=== PATIENT | female | born 1980 | race Caucasian/White ===

== ENCOUNTER 2023-06-05 18:27 | Outpatient (REF) | payer OTHER, SELFPAY ==
[2023-06-12 21:14] LABS: HPV mRNA E6/E7 rflx Not Detected (Not Detected)
== END 2023-06-05 18:28 | disposition home or self-care (01) ==
LOC: HO.HHCLNP 18:27
PROVIDERS: Visit Provider Family Medicine
DX: Z12.4 Encounter for screening for malignant neoplasm of cervix (principal); Z11.51 Encounter for screening for human papillomavirus (HPV)
CPT/HCPCS: 87624; 88142

== ENCOUNTER 2023-08-15 14:53 | Outpatient (REF) | payer OTHER, SELFPAY ==
[2023-08-15 18:11] LABS: Influenza A PCR NEGATIVE (Negative); Influenza B PCR NEGATIVE (Negative); Resp Syncy Virus RNA Qual PCR NEGATIVE (Negative); SARS COV2 PCR INHOUSE NEGATIVE (Negative)
== END 2023-08-15 14:54 | disposition home or self-care (01) ==
LOC: HO.CHCLNP 14:53
PROVIDERS: Visit Provider Family Medicine
DX: Z11.52 Encounter for screening for COVID-19 (principal); Z20.822 Contact with and (suspected) exposure to COVID-19; R09.81 Nasal congestion
CPT/HCPCS: 0241U

== ENCOUNTER 2023-10-19 10:38 | Outpatient (REF) | payer SELFPAY ==
[2023-10-19 15:23] LABS: TSH reflex Free T4 1.79 uIU/mL (0.32-4.0)
== END 2023-10-19 10:39 | disposition home or self-care (01) ==
LOC: HO.CHCLDS 10:38
PROVIDERS: Visit Provider Family Medicine
DX: E07.9 Disorder of thyroid, unspecified (principal)
CPT/HCPCS: 36415; 84443

== ENCOUNTER 2024-06-11 10:41 | Outpatient (REF) | payer OTHER, SELFPAY ==
[2024-06-11 14:37] LABS: MANUAL DIFF FLAG NO
[2024-06-11 14:40] LABS: Basophils Percent Auto 0.7 % (0-2); Eosinophils Absolute Auto 0.2 X10*3/uL (0.0-0.4); Eosinophils Percent Auto 3.9 % (0-4); Hematocrit 36.4 % (37.0-47.0); Imm Gran Abs Auto 0.01 X10*3/uL (0.00-0.03); Imm Gran Pct Auto 0.2 % (0.0-0.4); Lymphocytes Absolute Auto 1.2 X10*3/uL (1.2-4.9); Lymphocytes Percent Auto 29.1 % (20-40); Mean Corpuscular Hemoglobin 29.6 pg (27.0-33.0); Mean Corpuscular Volume 89.9 fL (80.0-98.0); Mean Platelet Volume 10.7 fL (9.4-12.3); Monocytes Absolute Auto 0.3 X10*3/uL (0.1-1.2); Neutrophils Absolute Auto 2.4 x10*3/uL (2.0-8.3); Neutrophils Percent Auto 58.1 % (45-73); Platelet Count 231 X10*3/uL (160-400); Red Blood Count 4.05 X10*6/uL (4.20-5.50); Red Cell Distribution Width 12.4 % (11.0-16.0); White Blood Count 4.1 X10*3/uL (4.8-10.8)
[2024-06-11 15:15] LABS: Alanine Aminotransferase 10 U/L (0-31); Albumin Level 4.2 g/dL (3.5-5.0); Alkaline Phosphatase 33 U/L (39-117); Anion Gap 9 (12-20); Aspartate Amino Transferase 15 U/L (5-31); Bilirubin Total 0.9 mg/dL (0.0-1.0); Blood Urea Nitrogen 11 mg/dL (9-16); Calcium 9.2 mg/dL (8.4-10.2); Carbon Dioxide 27 mmol/L (22-29); Chloride 106 mmol/L (96-108); Cholesterol 145 mg/dL (<200); Estimated Glomerular Filt Rate > 60; Glucose Random 79 mg/dL (60-115); HDL Cholesterol 53 mg/dL (>40); LDL Cholesterol Calculated 83 mg/dL (<100); Potassium 3.9 mmol/L (3.3-5.1); Sodium 138 mmol/L (135-145); TSH reflex Free T4 1.48 uIU/mL (0.32-4.0); Total Protein 6.9 g/dL (6.5-8.0); Triglycerides 45 mg/dL (<150)
== END 2024-06-11 10:42 | disposition home or self-care (01) ==
LOC: HO.CHCLDS 10:41
PROVIDERS: Visit Provider Family Medicine
DX: E07.9 Disorder of thyroid, unspecified (principal); Z13.9 Encounter for screening, unspecified
CPT/HCPCS: 36415; 80053; 80061; 84443; 85025

== ENCOUNTER 2024-08-18 11:17 | Outpatient (REF) | payer OTHER, SELFPAY ==
[2024-08-18 14:12] LABS: MANUAL DIFF FLAG NO
[2024-08-18 14:16] LABS: Basophils Percent Auto 0.6 % (0-2); Eosinophils Absolute Auto 0.1 X10*3/uL (0.0-0.4); Eosinophils Percent Auto 1.8 % (0-4); Hematocrit 37.2 % (37.0-47.0); Hemoglobin 12.5 g/dl (12.0-16.0); Imm Gran Abs Auto 0.02 X10*3/uL (0.00-0.03); Imm Gran Pct Auto 0.3 % (0.0-0.4); Lymphocytes Absolute Auto 1.3 X10*3/uL (1.2-4.9); Lymphocytes Percent Auto 18.8 % (20-40); Mean Corpuscular HGB Conc 33.6 g/dl (31.0-35.0); Mean Corpuscular Hemoglobin 29.3 pg (27.0-33.0); Mean Corpuscular Volume 87.1 fL (80.0-98.0); Mean Platelet Volume 10.3 fL (9.4-12.3); Monocytes Absolute Auto 0.4 X10*3/uL (0.1-1.2); Monocytes Percent Auto 5.5 % (2-11); Neutrophils Absolute Auto 5.1 x10*3/uL (2.0-8.3); Platelet Count 232 X10*3/uL (160-400); Red Blood Count 4.27 X10*6/uL (4.20-5.50); Red Cell Distribution Width 12.9 % (11.0-16.0)
== END 2024-08-18 11:18 | disposition home or self-care (01) ==
LOC: HO.CHCLDS 11:17
PROVIDERS: Visit Provider Family Medicine
DX: Z00.00 Encounter for general adult medical examination without abnormal findings (principal)
CPT/HCPCS: 36415; 85025

== ENCOUNTER 2025-10-27 08:28 | Outpatient (REF) | payer OTHER, SELFPAY ==
--- OUTSIDE RECORDS SUMMARY | 2025-10-22 10:00 | XMS_ITS | Encounter Summary ---
Author Organization [employer] Address [address] [place] [address] Care Team Providers Care Drop Wire Aligner Name Role Phone Nadege Stockton MD Primary Care Provider [phone] Reason for Referral * Imaging (Routine) - Authorized Specialty Diagnoses / Procedures Referred By Contac t Referred To Contact Radiology Diagnoses Breast cancer screening by mammogram Procedures BI Mammogram Screening Tomosynthesis Bilateral Nadege Stockton MD [address] [place] [address] Phone: tel: fax: [facility] Referral ID Status Reason Start Date Expiration Date V isits Requested Visits Authorized [id number] Authorized 10/22/2025 10/22/2026 1 1 Reason for Visit * Reason Comments Annual Exam Encounter Details Date Type Department Care Team ([facility] st Contact Info) Description 10/22/2025 10:00 AM EST Office Visit [facility] [address] [place] [address] Nadege Stockton MD [address] [place] [address] Annual physical exam (Primary Dx); Breast cancer screening by mammogram Social History Tobacco Use Types Packs/Day Years Used Date Smoking Tobacco: Never Passive Smoke Exposure: Never Smokeless Tobacco: Never Alcohol Use Standard Drinks/Week Comments Never 0 (1 standard drink = 0.6 oz pur e alcohol) Depression Answer Date Recorded Patient Health Questionnaire-9 Score 0 10/22/2025 Patient Health Questionnaire-9 Score 0 10/22/2025 Last PHQ-9: Questionnaire Data Not on file 1 12/23/2024 Housing Stability Answer Date Recorded What is your housing situation today? I have jerrell castañeda 10/15/[address] you li ve. Do you have problems with any of the following? None of the above 10/15/2025 Food Insecurity Answer Date Recorded Within the past 12 months, y ou worried that your food would run out before you got money to buy more: Never True 10/15/2025 Within the past 12 months,th e food you bought just didn't last and you didn't have enough money to get more: Never True 02/2025 Transportation Answer Date Recorded In the past 12 months, has l ack of transportation kept you from medical appts, meetings, work or from getting things needed for daily living? No 10/15/2025 Utilities Answer Date Recorded In the past 12 months, has t he electric, gas, oil or water company threatened to shut off services in your home? No 10/15/2025 Depression Answer Date Recorded Patient Health Questionnaire-2 Score 0 10/22/2025 Internet Access Answer Date Recorded Internet Access Q1 Yes 10/15/2025 Internet Access Q2 Not on file 10/15/2025 Comments No Sex and Gender Information Value Date Recorded Sex Assigned at Female 09/11/2022 10:29 AM EDT Legal Sex Female 10:29 AM EDT Gender Identity Female 09/11/2022 10:29 AM EDT Sexual Orientation Straight 09/11/2022 10 :29 AM EDT documented as of this encounter Last Filed Vital Signs Vital Sign Reading Time Taken Comments Blood Pressure 120/67 10/22/2025 9:47 AM EST Pulse 78 10/22/2025 9:47 AM EST Temperature 36.3 C (97.4 F) 10/22/2025 9:47 AM EST Respiratory Rate 20 10/22/2025 9:47 AM EST Oxygen Saturation 99% 10/22/2025 9:47 AM EST Inhaled Oxygen Concentration - - Weight 56.4 kg (124 lb 6.4 oz) 10/22/2025 9:47 A M EST Height 154.9 cm (5' 1 ) 10/22/2025 9:47 AM EST Body Mass Index 23.51 10/22/2025 9:47 AM EST documented in this encounter Functional Status * Over the past 2 weeks, how often have you been bothered by any of the following problems? Question Answer Date of Assessment Author Patient Health Questionnaire -2 Score 0 10/22/2025 10:01 AM Nadege Daly MD * Little interest or pleasure in doing things Answer Date of Assessment Author Not at all 10/22/2025 10:01 AM Nadege Daly MD * Feeling down, depressed, or hopeless Answer Date of Assessment Author Not at all 10/22/2025 10:01 AM Nadege Daly MD * Trouble falling or staying asleep, or sleeping too much Answer Date of Assessment Author Not at all 10/22/2025 10:01 AM Nadege Daly MD * Feeling tired or having little energy Answer Date of Assessment Author Not at all 10/22/2025 10:01 AM Nadege Daly MD * Poor appetite or overeating Answer Date of Assessment Author Not at all 10/22/2025 10:01 AM Nadege Daly MD * Feeling bad about yourself - or that you are a failure or have let yourself or your family down Answer Date of Assessment Author Not at all 10/22/2025 10:01 AM Nadege Daly MD * Trouble concentrating on things, such as reading the newspaper or watching television Answer Date of Assessment Author Not at all 10/22/2025 10:01 AM Nadege Daly MD * Moving or speaking so slowly that other people could have noticed? Or the opposite - being so fidgety or restless that you have been moving around a lot more than usual. Answer Date of Assessment Author Not at all 10/22/2025 10:01 AM Nadege Daly MD * Thoughts that you would be better off or hurting yourself in some way Answer Date of Assessment Author Not at all 10/22/2025 10:01 AM Nadege Daly MD * Patient Health Questionnaire-9 Score Answer Date of Assessment Author 0 10/22/2025 10:01 AM Nadege Daly MD documented as of this encounter Progress Notes * Nadege Stockton MD - 10/22/2025 10:00 AM EST Subjective Patient ID: Yoko Ramon is a 45 y.o. female who presents for Annual Exam. Yoko Ramon presents for routine follow-up with multiple concerns including post-COVID respiratory symptoms, knee issues, and dermatologic management. The patient reports experiencing shortness of breath without exertion that began after having COVID. She describes this as a lack of air without exercise or running and notes this symptom never occurred prior to her COVID illness. She finds relief with albuterol use, though she reports not using it preventively and only when symptomatic. The patient mentions that when she exercises and becomes symptomatic, she waits until feeling better before resuming her routine, sometimes using albuterol before high-impact exercise if she feels well. Regarding her left knee, the patient reports hearing sounds she describes as crunchy wheels without associated pain, just during warming up. She notes this has been occurring for several years and mentions a family history of arthritis and osteoporosis. She continues to exercise as part of managing her thyroid condition and reports that stopping exercise leads to sadness and depression. The patient has a history of atopic dermatitis diagnosed in [place], which she reports is currently under control. She requests a prescription refill as her previous prescription has faded and she would like to have medication available as needed. The patient confirms she has not received flu or COVID vaccines. Medications and Supplements - Albuterol as needed for shortness of breath with exercise - Provides relief, uses when feels good before high-impact exercise if needed - Atopic dermatitis medication - Previously prescribed in [place], currently under control, prescription has faded Family History - Family members: History of arthritis and osteoporosis Social History - Living Situation: Lives with and children - Exercise: Regular exercise routine, uses exercise to help manage thyroid condition and mood; reports that stopping exercise leads to sadness and depression - Housing: Reports heating issues at home during winter Immunizations - Influenza: Patient reports not receiving flu vaccine - COVID-19: Patient reports not receiving COVID vaccine Review of Systems Respiratory: Positive for shortness of breath without exertion. Musculoskeletal: Positive for left knee crepitus without pain. Psychiatric: Positive for sadness and depression when not exercising. Review of Systems Constitutional: Negative for appetite change, fatigue and fever. HENT: Negative for congestion, postnasal drip and rhinorrhea. Eyes: Negative for discharge and redness. Respiratory: Negative for apnea, cough, chest tightness and shortness of breath. Cardiovascular: Negative for chest pain. Gastrointestinal: Negative for abdominal pain. Endocrine: Negative for polyphagia. Genitourinary: Negative for difficulty urinating, dysuria and urgency. Musculoskeletal: Negative for arthralgias. Neurological: Negative for dizziness, light-headedness, numbness and headaches. Hematological: Negative for adenopathy. Does not bruise/bleed easily. Objective BP 120/67 Pulse 78 Temp 97.4 ??F (36.3 ??C) (Oral) Resp 20 Ht 5' 1 (1.549 m) Wt 124 lb 6.4 oz (56.4 kg) LMP 10/16/2025 (Approximate) SpO2 99% BMI 23.51 kg/m?? Physical Exam Constitutional: General: She is not in acute distress. Appearance: Normal appearance. She is normal weight. She is not ill-appearing. HENT: Head: Normocephalic and atraumatic. Right Ear: Tympanic membrane, ear canal and external ear normal. Left Ear: Tympanic membrane, ear canal and external ear normal. Nose: Nose normal. Mouth/Throat: Lips: [place]. No lesions. Mouth: Mucous membranes are moist. Pharynx: Oropharynx is clear. Uvula midline. Eyes: General: Lids are normal. Extraocular Movements: Extraocular movements intact. Conjunctiva/sclera: Conjunctivae normal. Cardiovascular: Rate and Rhythm: Regular rhythm. Pulses: Radial pulses are 2+ on the right side and 2+ on the left side. Dorsalis pedis pulses are 2+ on the right side and 2+ on the left side. Posterior tibial pulses are 2+ on the right side and 2+ on the left side. Heart sounds: No murmur heard. Pulmonary: Effort: Pulmonary effort is normal. Breath sounds: Normal breath sounds. Abdominal: General: Abdomen is flat. Bowel sounds are normal. Palpations: Abdomen is soft. Tenderness: There is no abdominal tenderness. There is no right CVA tenderness or left CVA tenderness. Hernia: No hernia is present. Musculoskeletal: Right shoulder: Normal. Left shoulder: Normal. Right upper arm: Normal. Left upper arm: Normal. Cervical back: Normal and full passive range of motion without pain. Normal range of motion. Thoracic back: Normal. Normal range of motion. Lumbar back: Normal. Normal range of motion. Right hip: Normal. Normal range of motion. Left hip: Normal. Normal range of motion. Right knee: Normal. Normal range of motion. Left knee: Normal. Normal range of motion. Right lower leg: No edema. Left lower leg: No edema. Lymphadenopathy: Cervical: No cervical adenopathy. Skin: General: Skin is warm. Capillary Refill: Capillary refill takes less than 2 seconds. Neurological: General: No focal deficit present. Mental Status: She is alert. Cranial Nerves: Cranial nerves 2-12 are intact. Deep Tendon Reflexes: Reflexes are normal and symmetric. Psychiatric: Behavior: Behavior is cooperative. Assessment/Plan Problem List Items Addressed This Visit Annual physical exam - Primary 45 y.o. female here for annual physical examination Reviewed BMI and BP with patient. Nutritional recommendations: Recommended to decrease soda and sugary beverage consumption. Recommended at least 20 g per meal of protein to assist with satiety. Exercise recommendations: Recommended at least 150 min/week of moderate intensity exercise. 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 Symptoms improve with albuterol use, though testing has not confirmed asthma diagnosis. This presentation is consistent with post-COVID respiratorysymptoms that many patients experience, with bronchodilator responsiveness suggesting possible reactive airway component. Plan: - Continue albuterol as needed for exercise-induced symptoms - Patient to use albuterol before high-impact exercise if feeling well Left knee crepitus Assessment: Patient reports crepitus in left knee without associated pain, describing it as crunchy wheels sound with warming up sensation. Crepitus has been present for several years. Given familyhistory of arthritis and osteoporosis, this may indicate early degenerative changes that could progress to arthritis in the future. Plan: - Continue current exercise routine for thyroid management and mood benefits - Monitor for development of pain or functional limitations Atopic dermatitis Assessment: Patient has history of atopic dermatitis diagnosed in [place], currently well-controlled. Prescription has faded and patient requests refill for preventive management. Plan: - Refill atopic dermatitis medication - Send prescription to local [place] pharmacy for patient convenience Mammography screening Assessment: Patient had mammography in May 2024. Plan: documented in this encounter Miscellaneous Notes * Assessment & Plan Note - Nadege Stockton MD - 10/22/2025 10:36 AM EST Associated Problem(s): Annual physical exam 45 y.o. female here for annual physical examination Reviewed BMI and BP with patient. Nutritional recommendations: Recommended to decrease soda and sugary beverage consumption. Recommended at least 20 g per meal of protein to assist with satiety. Exercise recommendations: Recommended at least 150 min/week of moderate intensity exercise. BH screen done and reviewed Care Gaps reviewed IZ reviewed and discussed w/ patient Updated/reviewed PMH, Surghx, Family Hx & Social Hx documented in this encounter Plan of Treatment Upcoming Encounters Date Type Department Care Team (Late st Contact Info) Description 11/20/2025 12:45 PM EST Office Visit [facility] [address] [place] [address] Lucero Ferguson Scheduled Orders Name Type Priority Associated Diagnoses Orde r Schedule CBC auto differential Lab Routine Annual physical exam Expected: 10/22/2025 (Approximate), Expires: 10/22/2026 Comprehensive Metabolic Panel Lab Routine Annual physical exam Expected: 10/22/2025 (Approximate), Expires: 10/22/2026 Vitamin D, 25-Hydroxy, Total, Immunoassay Lab Routine Annual physical exam Expected: 10/22/2025 (Approximate), Expires: 10/22/2026 Lipid Panel, Standard Lab Routine Annual physical exam Expected: 10/22/2025 (Approximate), Expires: 10/22/2026 TSH W/Reflex to FT4 Lab Routine Annual physical exam Expected: 10/22/2025 (Approximate), Expires: 10/22/2026 BI Mammogram Screening Tomosynthesis Bilateral Imaging Routine Breast cancer screening by mammogram Expected: 10/22/2025, Expires: 12/23/2026 documented as of this encounter Visit Diagnoses Diagnosis Annual physical exam- Primary Routine general medical examination at a health care facility Breast cancer screening by mammogram documented in this encounter Additional Health Concerns Assessment Noted Time PHQ-9 Depression Total Score: 0 10/22/20 25 10:01 AM EST documented as of this encounter Care Teams Drop Wire Aligner Relationship Specialty Start Date End Date Nadege Stockton MD [address] [place] [address] PCP - General Family Medicine 04/13/23 documented as of this encounter
--- OUTSIDE RECORDS SUMMARY | 2025-10-27 08:57 | XMS_ITS | Clinical Summary ---
Author Organization [employer] Address [address] [facility] 7t [place] [address] Care Team Providers Care Steam Cleaning Machine Operator Name Role Phone Nadege Stockton MD Primary Care Provider [phone] Allergies No known active allergies Medications albuterol 108 (90 Base) MCG/ACT inhalerIndicat ions:Encounter for health-related screening Inhale 2 puffs every 4 (four) hours if needed for wheezing. 18 g 2 04/13/20 23 Active cetirizine (ZyrTEC) 10 MG tablet Take 1 tablet (10 mg) by mouth in the morning. 30 tablet 08/15/20 23 Active triamcinolone (Kenalog) 0.5 % ointment Apply topically 2 times daily. 90 g 5 8:42 AM EST 10/22/20 25 Active fluticasone (Flonase) 50 MCG/ACT nasal spray Administer 2 sprays into each nostril Once per day. Shake gently. Before first use, prime pump. After use, clean tip and replace cap. 16 g 1 03/05/20 24 025 Discontinued Active Problems Problem Noted Date Diagnosed Date Annual physical exam 08/18/2024 Assessment & Plan (10/22/2025 10:36 AM EST): 45 y.o. female here for annual physical [...] PMH, Surghx, Family Hx & Social Hx Assessment & Plan (08/18/2024 11:04 AM EDT): Ordering CBC lab work for further evaluation. Sinus congestion 08/15/2023 Assessment & Plan (08/15/2023 2:52 PM EDT): + flu B, will send medication for congestion and tamiflu. RTC if no improvement of worsening symptoms Thyroid disease 04/13/2023 Assessment & Plan (06/10/2024 7:01 AM EDT): Pt has had an interruption of treatment, ordering lab work for further evaluation. Assessment & Plan (08/15/2023 2:54 PM EDT): Will monitor TSH biyearly and f/up with results. Assessment & Plan (04/13/2023 2:03 PM EDT): Will send labs to recheck levels. Persistent shortness of breath after COVID-19 Assessment & Plan (04/13/2023 2:04 PM EDT): Patient with persistent SOB s/p COVID 19 infection. Will send for pulmonary function test and send inhaler. 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 FU PAP results, if normal repeat in 5 yrs following ASCCP guidelines. Need for hepatitis B vaccination 06/05/2023 08/18/2024 Encounters Date Type Department Care Team Description 10/22/2025 10:00 AM EST Office Visit [facility] [address] [place] [address] Nadege Stockton MD Annual physical exam (Primary Dx); Breast cancer screening by mammogram 10/22/2025 Travel 10/20/2025 Telephone [facility] [address] [place] [address] Nadege Stockton MD chart prep 10/15/[address] [facility] [address] [place] [address] Nadege Stockton MD Pre-visit Planning (SDOH negative. Tobacco screening negative. ) from Last 3 Months Immunizations Immunization Administration Dates Next Due Hep B, adult 06/09/2024,07/19/2023,06/12/2023 Tdap 04/05/2016 Family History Medical History Relation Name Comments Eczema Father ROGER disease Father Eczema Mother ROGER disease Mother Osteoporosis Mother Thyroid disease Mother Liver cancer Mother's Sister Relation Name Status Comments Father Mother Mother's Sister Social History Tobacco Use Types Packs/Day Years Used Date Smoking Tobacco: Never Passive Smoke Exposure: Never Smokeless Tobacco: Never Tobacco Cessation:Counseling Given: Not Answered Alcohol Use Standard Drinks/Week Comments Never 0 [...] Orientation Straight 09/11/2022 10 :29 AM EDT Last Filed Vital Signs Vital Sign Reading [...] Mass Index 23.51 10/22/2025 9:47 AM EST Plan of Treatment Upcoming Encounters Date Type Department Care Team (Late st Contact Info) Description 11/20/2025 12:45 PM EST Office Visit [facility] ADULT DENTAL [address] [place] [address] Lucero Ferguson Health Maintenance Due Date Last Done Comments Disability Screening 1982 Alcohol/Substance Use Screening 1994 Family Planning (PISQ) 1997 Dental Oral Exam 05/03/2024 11/01/2023, , 02/28/2019, Additional history exists Dental X-Ray: Full Mouth 03/23/2025 03/22/2022, 01/2016 Dental Prophylaxis 11/13/2025 05/12/2025, 1 01/02/2023, 03/29/2023, Additional history exists DTaP/Tdap/Td Vaccines (2 - Td or Tdap) 04/05/2026 04/05/2016 Influenza Vaccine (#1) 2026 Postp oned from 07/13/2025 (Patient Refused) Dental X-Ray: Bitewings 05/13/2026 05/12/20, 03/29/2023, 03/22/2022, Additional history exists Mammogram 05/19/2026 05/19/2024 SDOH Screening 10/15/2026 10/15/2025 COVID-19 Vaccine ( season) 2026 04/20/2021, 03/30/2021 Postponed from 07/13/2025 (Patient Refused) Depression Screening 10/22/2026 10/22/2025, 10/22/20 HPV Vaccines (1 - 3-dose series) 10/22/2026 Postponed from 1997 (Patient Refused) Tobacco Screening 10/22/2026 10/22/2025 Cervical Cancer Screening 06/05/2028 HPV/Cotest 06/05/2028 06/05/2023 Pap Smear 06/05/2028 06/05/2023 Zoster Vaccines (1 of 2) 2032 RSV Patients and Patients Aged 60 years or older (1 - 1-dose 75+ series) 2057 HIV Screening Completed 05/04/2023 Hepatitis C Screening Completed 05/04/2023 Hepatitis B Vaccines Completed 06/09/2024, 07/19/2023, 06/12/2023 HIB Vaccines Aged Out No longer eligi ble based on patient's age to complete this topic Hepatitis A Vaccines Aged Out No long er eligible based on patient's age to complete this topic IPV Vaccines Aged Out No longer eligi ble based on patient's age to complete this topic Meningococcal B Vaccine Aged Out No l onger eligible based on patient's age to complete this topic Meningococcal Vaccine Aged Out No tigist roger eligible based on patient's age to complete this topic Pneumococcal Vaccine: Pediatrics (0 to 5 Years) and At-Risk Patients (6 to 49) Years Aged Out No longer eligible based on patient's age to complete this topic RSV under 20 months Aged Out No longe r eligible based on patient's age to complete this topic Rotavirus Vaccines Aged Out No longer eligible based on patient's age to complete this topic Procedures Procedure Name Priority Date/Time Associated Diagnosis Comments PROPHYLAXIS - ADULT Routine 05/12/2025 2 :00 PM EDT BITEWINGS - 4 RADIOGRAPHIC IMAGES Routine 05/12/2025 2:00 PM EDT PERIODIC ORAL EVALUATION - ESTABLISHED PATIENT Routine 11/01/2023 1:00 PM EST HPV MRNA E6/E7 REFLEX TO HPV 16, 18/45 Routine 06/05/2023 3:22 PM EDT PAP SMEAR Routine 06/05/2023 3:22 PM EDT Cervical cancer screening HEPATITIS C AB W/REFL TO HCV RNA, QN, PCR Routine 05/04/2023 8:48 AM EDT Encounter for health-related screening HIV 1/2 ANTIGEN/ANTIBODY, FOURTH GENERATION W/RFL Routine 05/04/2023 8:48 AM EDT Encounter for health-related screening INTRAORAL - COMPLETE SERIES OF RADIOGRAPHIC IMAGES Routine 03/22/2022 12:00 AM EDT from Last 3 Months or Most Recently Relevant to Health Maintenance Results * HPV mRNA E6/E7 w/Reflex to HPV Genotypes 16, 18/45 (06/05/2023 3:22 PM EDT) HPV nRNA E6/E7 Not Detected Not Detected [facility] Comment:Methodology: Transcr iption-Mediated AmplificationThis assay detects E6/E7 viral messenger RNA (mRNA) from 14high-risk HPV types (16,18,31,33,35,39,45,51,52,56,58,59,66,68).Cervical sources are required for HPV testing.If a vaginal source from a patient who has had atotal hysterectomy with removal of cervix wassubmitted, please contact the testing laboratoryfor alternative testing options.For additional information, please refer tohttp://education.Craftsvilla/faq/JTA277b5(This link if provided for information/educational purposes only.)THIS TEST WAS PERFORMED AT:[facility] [place] [phone] LANDEROS MD HPV mRNA E6/E7 [facility] HPV 16 RNA [facility] HPV 18/45 RNA [facility] 06/05/2023 3:22 PM EDT 06/07/2023 8:30 AM EDT us Nadege Stockton MD LAB CYTOLOGY ORDERABLES Final Result [facility] [address] [place] [phone] * Pap Smear (06/05/2023 3:22 PM EDT) Swab 06/05/2023 3:22 PM EDT 06/07/2023 8:30 AM EDT Narrative [facility] - 06/19/2023 1:39 PM EDT ----- ------- Name: TristenRomiemmanuelapolonia Age/Sex: 43/F : 1980 Unit#: [id number] Attend Dr: Nadege Stockton MD Re06/05/23 Status: [facility]: ----- ------- SPEC : [id number] RECD: 06/07/23 STATUS: [place] NUM: [id number] PAT: 06/05/23-[address] [facility] [address]: Nadege Stockton MD ENTERED: 06/07/23-1255 SP TYPE: Pap Smr OT DR: ORDERED: Pap Smear Interpretation Satisfactory for evaluation. Negative for intraepithelial lesion or malignancy. HPV mRNA E6/E7: NOT DETECTED This assay detects E6/E7 viral messenger RNA (mRNA) from 14 high-risk HPV types (16, 18, 31, 33, 35, 39, 45, 51, 52, 56, 58, 59, 66, 68) HPV testing performed by [facility], [place], [place]. See reference laboratory pion of the EMR for entire report. Clinical Information LMP: 05/20/23 Previous PAP test: Unknown date/findings Material Received ThinPrep-Cervical ----- ------- Signed (signature on file) MAVERICK Rodriguez (ASCP) 06/19/23 1339 ----- ------- END OF REPORT us Nadege Stockton MD LAB CYTOLOGY ORDERABLES Final Result [facility] [address] [place] [phone] * Hepatitis C Antibody with Reflex to HCV, RNA, Quantitative, Real-Time PCR (05/04/2023 8:48 AM EDT) Hepatitis C Antibody NON-REACT TIERA NON-REACT TIERA [facility] Comment: HCV antibody was non-reactive. There is no laboratory evidence of HCV infection. In most cases, no further action is required. However, if recent HCV exposure is suspected, a test for HCV RNA (test code 59275) is suggested. For additional information please refer to http://education.[facility].com/faq/LAD94o1 (This link is being provided for informational/ educational purposes only.) Blood Venous blood specimen / Unknown 05/04/2023 8:48 AM EDT 05/04/2023 8:49 AM EDT Nadege Stockton MD LAB BLOOD ORDERABLES Final Re sult Performing Organization Address City/[facility]/ZIP Co de Phone Number [facility] [address] [place] [address], [facility] [place] [phone] [facility] [employer] [address] [place] [phone] * HIV-1/2 Antigen and Antibodies, Fourth Generation, with Reflexes (05/04/2023 8:48 AM EDT) [facility] HIV Antigen/Antibody, 4th Generation NON-REAC TIVE NON-REAC TIVE [facility] [place] [employer] Comment: HIV-1 antigen and HIV-1/HIV-2 antibodies were not detected. There is no laboratory evidence of HIV infection. PLEASE NOTE: This information has been disclosed to you from records whose confidentiality may be protected by state law. If your state requires such protection, then the state law prohibits you from making any further disclosure of the information without the specific written consent of the person to whom it pertains, or as otherwise permitted by law. A general authorization for the release of medical or other information is NOT sufficient for this purpose. For additional information please refer to http://[facility].ALTILIA.eSnips/faq/RPG894 (This link is being provided for informational/ educational purposes only.) The performance of this assay has not been clinically validated in patients less than 2 years old. Blood Venous blood specimen / Unknown 05/04/2023 8:48 AM EDT 05/04/2023 8:49 AM EDT Nadege Stockton MD LAB BLOOD ORDERABLES Final Re sult [facility] [address] [place] [address], [facility] [place] [phone] [facility] [address] [place] [phone] from Last 3 Months or Most Recently Relevant to Health Maintenance [place] [address] [place] [address] [facility] DENTAL - HSN PARTIAL (MEDICAID) Care Teams Steam Cleaning Machine Operator Relationship Specialty Start Date End Date Nadege Stockton MD [address] [place] [phone] PCP - General Family Medicine 04/13/23
--- OUTSIDE RECORDS SUMMARY | 2025-10-27 08:57 | XMS_ITS | Encounter Summary ---
Author Organization [employer] Address [address] [facility] 7 [place] [address] Care Team Providers Care Deckhand Engineer Name Role Phone Nadege Stockton MD Primary Care Provider [phone] Encounter Details Date Type Department Care Team (Latest Contact Info) Description 03/22/2022 Abstract [facility] CONVERSIONS Dental, Provider, DDS Social History Tobacco Use Types Packs/Day Years Used Date Smoking Tobacco: Never Assessed Comments Unknown Sex and Gender Information Value Date Recorded Sex Assigned at Female 09/11/2022 10:29 AM EDT Legal Sex Female 10:29 AM EDT Gender Identity Female 09/11/2022 10:29 AM EDT Sexual Orientation Straight 09/11/2022 10 :29 AM EDT documented as of this encounter Plan of Treatment Upcoming Encounters Date Type Department Care Team (Late st Contact Info) Description 11/20/2025 12:45 PM EST Office Visit [facility] ADULT DENTAL [address] [place] [address] Lucero Ferguson documented as of this encounter Visit Diagnoses Not on filedocumented in this encounter Care Teams Deckhand Engineer Relationship Specialty Start Date End Date Nadege Stockton MD [address] [place] [address] PCP - General Family Medicine 04/13/23 documented as of this encounter
--- OUTSIDE RECORDS SUMMARY | 2025-10-27 08:57 | XMS_ITS | Clinical Summary ---
Author Organization [facility] Address [address] [place] [address] Care Team Providers Care Kiln Burner Helper Name Role Phone Norah Horne MD Primary Care Provider [phone] Social History Tobacco Use Types Packs/Day Years Used Date Smoking Tobacco: Never Assessed Comments Unknown Sex and Gender Information Value Date Recorded Sex Assigned at Not on file Legal Sex Female 12:23 AM EST Gender Identity Not on file Sexual Orientation Not on file Plan of Treatment Health Maintenance Due Date Last Done Comments Breast Cancer Screening 1982 DTaP,Tdap,and Td Vaccines (1 - Tdap) 2001 Hepatitis B Vaccines (1 of 3 - 19+ 3-dose series) 2001 Cervical Cancer Screening: P ap Smear 2003 HPV Vaccines (1 - 3-dose SCD M series) 2009 Depression Screening 11/12/2024 COVID-19 Vaccine (1 - 2024-2 6 season) 2025 Influenza Vaccine (#1) 2025 RSV Immunization Adult Patie nts (1 - 1-dose 75+ series) 2057 HIB Vaccines Aged Out No longer eligi ble based on patient's age to complete this topic Hepatitis A Vaccines Aged Out No long er eligible based on patient's age to complete this topic IPV Vaccines Aged Out No longer eligi ble based on patient's age to complete this topic MMR Vaccines Aged Out No longer eligi ble based on patient's age to complete this topic Meningococcal ACWY Vaccine Aged Out N o longer eligible based on patient's age to complete this topic Meningococcal B Vaccine Aged Out No l onger eligible based on patient's age to complete this topic Pneumococcal Vaccine: Pediat rics (0 to 5 Years) and At-Risk Patients (6 to 49 Years) Aged Out No longer eligible b ased on patient's age to complete this topic RSV Immunization Patients Un austin 20 months Aged Out No longer eligible b ased on patient's age to complete this topic Varicella Vaccines Aged Out No longer eligible based on patient's age to complete this topic Care Teams Kiln Burner Helper Relationship Specialty Start Date [place] [address] PCP - General Internal Medicine 02/14/21
--- OUTSIDE RECORDS SUMMARY | 2025-10-27 08:57 | XMS_ITS | Encounter Summary ---
Author Organization [employer] Address [address] [facility] [address] [place] [address] Care Team Providers Care Retail Greeter Name Role Phone Nadege Stockton MD Primary Care Provider [phone] Encounter Details Date Type Department Care Team (Latest Contact Info) Description 10/22/2025 Travel Social History Tobacco Use Types Packs/Day Years [...] AM EDT documented as of this encounter Functional Status * Over the [...] Daly MD documented as of this encounter Plan of Treatment Upcoming Encounters Date Type Department Care Team (Late st Contact Info) Description 11/20/2025 12:45 PM EST Office Visit [facility] AD[facility] [address] [place] [address] Lucero Ferguson documented as of this encounter Visit Diagnoses Not on filedocumented in this encounter Additional Health Concerns Assessment Noted Time PHQ-9 Depression Total Score: 0 10/22/20 25 10:01 AM EST documented as of this encounter Care Teams Retail Greeter Relationship Specialty Start Date End Date Nadege Stockton MD [address] [place] [phone] PCP - General Family Medicine 04/13/23 documented as of this encounter
--- OUTSIDE RECORDS SUMMARY | 2025-10-27 08:57 | XMS_ITS | Encounter Summary ---
Author Organization [employer] Address [address] [facility] [address] [place] [address] Care Team Providers Care Six Pack Loader Operator Name Role Phone Nadege Stockton MD Primary Care Provider [phone] Encounter Details Date Type Department Care Team (Latest Contact Info) Description 01/01/[address] [facility] CONVERSIONS Dental, Provider, DDS Social History Tobacco [...] Description 11/20/2025 12:45 PM EST Office Visit [facility] ADULT DENTAL [address] [place] [address] Lucero Ferguson documented as of this encounter Visit Diagnoses Not on filedocumented in this encounter Care Teams Six Pack Loader Operator Relationship Specialty Start Date End Date Nadege Stockton MD [address] [place] [address] PCP - General Family Medicine 04/13/23 documented as of this encounter
[2025-10-27 15:26] LABS: MANUAL DIFF FLAG NO
[2025-10-27 15:35] LABS: Hematocrit 39.8 % (37.0-47.0); Hemoglobin 13.2 g/dl (12.0-16.0); Imm Gran Abs Auto 0.01 X10*3/uL (0.00-0.03); Imm Gran Pct Auto 0.3 % (0.0-0.4); Lymphocytes Absolute Auto 1.2 X10*3/uL (1.2-4.9); Mean Corpuscular HGB Conc 33.2 g/dl (31.0-35.0); Mean Corpuscular Hemoglobin 29.9 pg (27.0-33.0); Mean Corpuscular Volume 90.2 fL (80.0-98.0); NRBC Abs Auto 0.000 X10*3/uL (0.0-0.012); NRBC Pct Auto 0.0 /100WBC (0.0-0.2); Platelet Count 251 X10*3/uL (160-400); Red Blood Count 4.41 X10*6/uL (4.20-5.50); White Blood Count 3.8 X10*3/uL (4.8-10.8)
[2025-10-27 16:28] LABS: Alanine Aminotransferase 19 U/L (0-31); Albumin Level 4.6 g/dL (3.5-5.0); Alkaline Phosphatase 38 U/L (39-117); Anion Gap 9 (12-20); Aspartate Amino Transferase 28 U/L (5-31); Blood Urea Nitrogen 12 mg/dL (9-16); Calcium 9.2 mg/dL (8.4-10.2); Carbon Dioxide 27 mmol/L (22-29); Chloride 105 mmol/L (96-108); Cholesterol 165 mg/dL (<200); Estimated Glomerular Filt Rate > 60; HDL Cholesterol 58 mg/dL (>40); Potassium 4.2 mmol/L (3.3-5.1); Sodium 137 mmol/L (135-145); Total Protein 7.0 g/dL (6.5-8.0); Triglycerides 52 mg/dL (<150)
== END 2025-10-27 08:29 | disposition home or self-care (01) ==
LOC: HO.CHCLDS 08:28
PROVIDERS: Visit Provider Family Medicine
DX: Z00.00 Encounter for general adult medical examination without abnormal findings (principal); Z13.29 Encounter for screening for other suspected endocrine disorder; Z13.21 Encounter for screening for nutritional disorder; Z13.6 Encounter for screening for cardiovascular disorders
CPT/HCPCS: 36415; 80053; 80061; 82306; 84443; 85025